=== PATIENT | male | born 1970 | race Caucasian/White ===

== ENCOUNTER 2016-04-26 00:41 | Emergency (ER) | payer OTHER ==
--- NOTE | 2016-04-26 00:59 | PDOC ---
History of Present Illness - General Chief Complaint: Injury Stated Complaint: RT ANKLE PAIN Time Seen by Provider: 04/26/16 00:48 History Source: Patient Exam Limitations: No Limitations - History of Present Illness Initial Comments: 04/26/16 00:57 This is a 45-year-old male who comes in for evaluation right ankle pain. Patient said he slipped and twisted his ankle while ambulating on icy surface. Patient did not hit his head or pass out. Patient denies any other injuries. PAST MEDICAL HISTORY: no significant history PAST SURGICAL HISTORY: no significant history FAMILY HISTORY: no pertinant history SOCIAL HISTORY: Pt lives with family and is employed. MEDICATIONS: reviewed ALLERGIES: As per nursing notes Review of Systems General: No fevers or chills, no weakness, no weight loss HEENT: No change in vision. No sore throat,. No ear pain CardioVascular: No chest pain or shortness of breath Respiratory:No cough, or wheezing. Gastrointestinal: no nausea, vomitting, diarrhea or constipation, No rectal bleeding Genitourinary: No dysuria, hematuria, or frequency Musculoskeletal: Right ankle pain and swelling as per history of present illness Neurologic: No headache, vertigo, dizziness or loss of consciousness Psychiatric: nor depression Skin: No rashes or easy bruising Endocrine: no increased thirst or abnormal weight change Allergic: no skin or latex allergy All other systems reviewed and normal GENERAL: The patient is awake, alert, and fully oriented, in no acute distress. HEAD: Normal with no signs of trauma. EYES: Pupils equal, round and reactive to light, extraocular movements intact, sclera anicteric, conjunctiva clear. EXTREMITIES: Normal range of motion, no edema. Right ankle: There is marked swelling medially over the medial malleolus with tenderness on palpation bilateral malleolus but medially greater than lateral. There is no tenderness on palpation of the bones of the foot is ascitic wave base of the fifth metatarsal. Neurovascular is intact NEUROLOGICAL: Normal speech, normal gait. PSYCH: Normal mood, normal affect. SKIN: Warm, Dry, normal turgor, no rashes or lesions noted. 04/26/16 01:07 X-ray no acute pathology Assessment and plan: This is a 45-year-old male who twisted his ankle well and he slipped on some ice. Patient x-rays negative for any fracture or dislocation. Patient given Daniel wrap, crutches pain medication and told to follow -up with his primary care doctor as needed Past History - Past Medical History Allergies/Adverse Reactions: Allergies Allergy/AdvReac Type Severity Reaction Status Date / Time No Known Allergies Allergy Verified 07/18/14 20:36 Home Medications: Ambulatory Orders Oxycodone HCl/Acetaminophen [Percocet 5/325 -] 1 tab PO Q4H #10 tablet 07/18/14 - Immunization History Td Vaccination: Yes Immunization Up to Date: Yes - Psycho/Social/Smoking Cessation Hx Anxiety: No Suicidal Ideation: No Smoking Status: No Smoking History: Unknown if ever smoked Have you smoked in the past 12 months: No Number of Cigarettes Smoked Daily: 0 Hx Alcohol Use: No Drug/Substance Use Hx: No Substance Use Type: None ED Treatment Course - RADIOLOGY Radiology Studies Ordered: Category Date Time Status ANKLE-RIGHT [RAD] Stat Radiology 04/26/16 00:50 Ordered *DC/Admit/Observation/Transfer Diagnosis at time of Disposition: Moderate right ankle sprain Qualifiers: Encounter type: initial encounter Qualified Code(s): S93.401A - Sprain of unspecified ligament of right ankle, initial encounter - Discharge Dispostion Disposition: HOME Condition at time of disposition: Stable Admit: No - Referrals Referrals: Jose Tanner MD [Primary Care Provider] - - Patient Instructions Printed Discharge Instructions: Ankle Sprain Additional Instructions: Wear the Daniel wrap, use your crutches as needed for walking. Tylenol or Motrin as needed for pain. Return to the emergency department immediately with ANY new, persistent or worsening symptoms. Continue any medications as previously prescribed by your physician. You should follow up with your primary doctor as soon as possible regarding today's emergency department visit. . Please make sure your doctor reviews the results of your emergency evaluation. Thank you for coming to the Emergency Department today for your care. It was a pleasure to see you today. Please note that your evaluation is INCOMPLETE until you follow-up with your doctor.
[2016-04-26] MEDS ORDERED: KETOROLAC TROMETHAMINE 60 MG/2 ML VIAL IM ONE (01:04)
[2016-04-26 01:39] VITALS: BP 147/92; PULSE 77; TEMP 98; BMI 34.4
[2016-04-26] MEDS ORDERED: KETOROLAC TROMETHAMINE 60 MG/2 ML VIAL ONE (01:44)
[2016-04-26] MEDS ORDERED: IBUPROFEN 600 MG TABLET (FP) PO ONE ×2 (01:46→01:47)
== END 2016-04-26 01:53 | disposition home or self-care (01) ==
LOC: FER 00:41
DX: S93.401A Sprain of unspecified ligament of right ankle, initial encounter (principal); W00.9XXA Unspecified fall due to ice and snow, initial encounter; Y93.89 Activity, other specified; Y92.9 Unspecified place or not applicable
CPT/HCPCS: 73610-TC-RT; 99282-25

== ENCOUNTER 2021-04-18 13:27 | Emergency (ER) | payer OTHER ==
[2021-04-18 13:37] VITALS: BP 161/97; PULSE 101; TEMP 99.4; BMI 33.7
[2021-04-18] MEDS ORDERED: ACETAMINOPHEN 325 MG TABLET (FP) PO ONE (13:54)
[2021-04-18] MEDS ORDERED: ACETAMINOPHEN 325 MG TABLET (FP) ONE (14:19)
== END 2021-04-18 15:02 | disposition home or self-care (01) ==
LOC: FER 13:27
DX: Z04.3 Encounter for examination and observation following other accident (principal); Y04.0XXA Assault by unarmed brawl or fight, initial encounter; Y92.9 Unspecified place or not applicable
CPT/HCPCS: 70450-TC; 99284-25

== ENCOUNTER 2024-01-24 16:51 | Emergency (ER) | payer OTHER ==
[2024-01-24 17:44] VITALS: BP 149/88; PULSE 79; RESP 16; TEMP 97.3; BMI 34.4
== END 2024-01-24 17:49 | disposition home or self-care (01) ==
LOC: FER 16:51
DX: M25.561 Pain in right knee (principal); M25.461 Effusion, right knee
CPT/HCPCS: 73562-TC-RT-FY; 99283-25